=== PATIENT | female | born 1970 | race American Indian/Alaskan Native ===

== ENCOUNTER 2021-12-08 14:28 | Emergency (ER) | payer OTHER ==
[2021-12-08] MEDS ORDERED: CYCLOBENZAPRINE 10 MG TAB PO ONE (19:44)
[2021-12-08] MEDS ORDERED: ACETAMINOPHEN W/CODEINE 300-30 MG TAB PO ONE (19:44)
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
[2021-12-08 21:51] VITALS: BP 141/86
== END 2021-12-08 21:30 | disposition home or self-care (01) ==
LOC: ED 14:28
DX: R10.9 Unspecified abdominal pain (principal); R50.9 Fever, unspecified; V89.2XXA Person injured in unspecified motor-vehicle accident, traffic, initial encounter; Y93.89 Activity, other specified; Y92.89 Other specified places as the place of occurrence of the external cause; Y99.8 Other external cause status; I10 Essential (primary) hypertension
CPT/HCPCS: 70450; 99283